=== PATIENT | female | born 1995 | race Caucasian/White ===

== ENCOUNTER 2017-12-13 19:39 | Emergency (ER) | payer BC ==
[~2017-12-13] VITALS: Ht 160 cm; Wt 52.8 kg
[~2017-12-13 19:39] MED LIST: ATARAX,VISTARIL25 MG PO; ELMIRON100 MG PO; LO LOESTRIN FE1 EACH PO; MONTELUKAST SOD10 MG PO; MYRBETRIQ25 MG PO; PROAIR HFA8.5 GM IH; URIBEL CAPSULE1 EACH PO; ZANTAC150 MG PO; ZOFRAN ODT4 MG PO
[2017-12-13 20:13] LABS: HEMATOCRIT 40.5 % (36.0-46.0); HEMOGLOBIN 14.4 G/DL (11.9-15.5); MCH 31.6 PG (29.0-34.0); MCHC 35.6 G/DL (30.0-36.0); PLATELET COUNT 290 K/uL (156-360); RBC DIS.WIDTH-SD 39.2 % (39-53); RED BLOOD COUNT 4.55 M/uL (3.80-5.20); WHITE BLOOD COUNT 7.2 K/uL (4.1-10.2)
[2017-12-13 20:22] LABS: ALBUMIN 4.5 g/dL (3.2-4.8); CHLORIDE 104 mEq/L (99-109)
[2017-12-13 20:23] LABS: POTASSIUM 3.7 mEq/L (3.7-5.4); SODIUM 141 mEq/L (136-147)
[2017-12-13 20:25] LABS: GLUCOSE 109 mg/dL (70-99); TOTAL PROTEIN 7.7 g/dL (6.4-8.3)
[2017-12-13 20:27] LABS: TOTAL BILIRUBIN 1.7 mg/dL (0.0-1.0)
[2017-12-13 20:28] LABS: ALKALINE PHOSPHATASE 55 IU/L (3-129); CREATININE 0.7 mg/dL (0.6-1.3); GFR ESTIMATE (CALCULATED) > 59 mL/min/
[2017-12-13 20:30] LABS: AST (GOT) 14 IU/L (2-34); UREA NITROGEN (BUN) 7 mg/dL (9-23)
[2017-12-13 20:31] LABS: ALT (GPT) 14 IU/L (3-49)
[2017-12-13 20:38] LABS: QUANTITATIVE HCG < 4.0 MIU/ML
[2017-12-13 21:15] LABS: APPEARANCE SL.HAZY ((CLEAR)); BILIRUBIN NEGATIVE; BLOOD NEGATIVE; COLOR YELLOW ((YELLOW)); GLUCOSE (STRIP) NEGATIVE; KETONES NEGATIVE; LEUKOCYTES NEGATIVE; NITRITE NEGATIVE; PROTEIN (STRIP) 30; SPECIFIC GRAVITY 1.019 (1.000-1.030); UROBILINOGEN 0.2 MG/DL (0.2-1.0)
[2017-12-13 21:23] LABS: BACTERIA RARE /HPF; EPITHELIAL CELLS RARE /HPF; MUCUS TRACE /LPF; RED BLOOD CELLS 0-5 /HPF (0-5); UCUL ADDED? NO; WHITE BLOOD CELLS 0-5 /HPF (0-5)
[2017-12-13] MEDS ORDERED: FLEXERIL10 MG PO (21:51)
[2017-12-13] MEDS ORDERED: LIDODERM 5% P1 PATCH TD (21:51)
[2017-12-13 22:16] VITALS: BP 128/88
== END 2017-12-13 22:18 | disposition home or self-care (01) ==
LOC: EME 19:39
DX: R10.9 Unspecified abdominal pain (principal); Z79.3 Long term (current) use of hormonal contraceptives; Z87.448 Personal history of other diseases of urinary system; J30.2 Other seasonal allergic rhinitis
CPT/HCPCS: 74176; 80053; 81003; 81025; 84702; 85027; 99281; 99284